=== PATIENT | male | born 1965 | race African-American/Black ===

== ENCOUNTER → 2024-08-10 09:01 | Outpatient (BNVA) | payer OTHER, SELFPAY | PROVIDERS: Visit Provider Physician Assistant | DX: S61.012A Laceration without foreign body of left thumb without damage to nail, initial encounter (principal); W26.9XXA Contact with unspecified sharp object(s), initial encounter; Z23 Encounter for immunization | CPT/HCPCS: 99204 ==

== ENCOUNTER → 2024-08-13 11:07 | Outpatient (BNVA) | payer OTHER, SELFPAY | PROVIDERS: Visit Provider Internal Medicine | DX: S61.012D Laceration without foreign body of left thumb without damage to nail, subsequent encounter (principal); W26.9XXD Contact with unspecified sharp object(s), subsequent encounter | CPT/HCPCS: 99213 ==

== ENCOUNTER → 2024-11-08 10:50 | Outpatient (BNVA) | payer OTHER, SELFPAY | PROVIDERS: Visit Provider Physician Assistant | DX: S39.012A Strain of muscle, fascia and tendon of lower back, initial encounter (principal); X50.1XXA Overexertion from prolonged static or awkward postures, initial encounter | CPT/HCPCS: 99203 ==

== ENCOUNTER 2025-06-11 15:38 | Outpatient (AMB) | payer OTHER, SELFPAY ==
--- NOTE | 2025-06-11 15:57 | AM.OFFWIN_ITS ---
Intake Vital Signs 06/11/25 16:00 Height 5 ft 6 in Weight 300 lb BMI 48.4 BP 126/78 Blood Pressure Location Lt brachial Position Sitting Respiration 17 Pulse 67 Pulse Source Pulse Oximeter Temp 97.7 F Temp Source Oral Pulse Oximetry (%) 95 Oxygen Delivery Method Room Air Intake Visit Reasons: EP Back pain Intake Note: Pt is here today for a walk in visit. Pt c/o R lower back pain that goes down his leg for 3 days. Pt states that he has been shoveling. 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 - He reports the onset was after strenuo us physical labor, including shoveling ice and snow and carrying buckets. - He describes the pain as starting on t he right side, localized to the right flank and buttock, and radiating down the right leg. - He denies a prior history of sciatica. - He has not taken any medications like Advil or Motrin for the pain. Nor has he used ice. - He denies any loss of bladder or bowel control. Review of Systems Narrative Review of Systems - Genitourinary: Denies bladder incontinence. - Gastrointestinal: Denies bowel incontinence. - Musculoskeletal: Reports pain in the right low back, right flank, and right buttock. - Neurological: Reports pain radiating down the right leg. All systems reviewed and are unremarkable except as noted in HPI Physical Exam Exam Exam: Physical Exam General: cooperative, healthy appearing and comfortable, patient oriented x3 Head: Yes normal to inspection and Yes normocephalic General nose exam: Normal external nose present Face and sinus: Yes normal facial exam Effort & Inspection: normal respiratory effort and able to speak in complete sentences Back/spine: cervical, thoracic and lumbar spine normal to inspection cervical ROM normal, thoracic ROM normal, lumbar ROM normal no Cervical, thoracic or lumbar spine tenderness no TTP buttocks. Extremities: Straight leg raise test negative on right; Straight leg raise test negative on left; motor strength normal bilaterally, sensation intact bi laterally Neurological: normal gait Vital Signs: Last Vital Signs Temp 97.7 F 06/11/25 16:00 Pulse 67 06/11/25 16:00 Resp 17 06/11/25 16:00 BP 126/78 06/11/25 16:00 Pulse Ox 95 06/11/25 16:00 Oxygen Delivery Method Room Air 06/11/25 16:00 BMI result Body Mass Index 48.4 Assessment & Plan Assessment & Plan (1) Sciatica, right side: Code(s): M54.31 - Sciatica, right side Plan: Assessment and Plan Right-sided sciatica The patient presents with right-sided low back pain radiating down the leg, which started after recent strenuous physical activity. The pain originates in the right low back and buttock area. Although the straight leg raise test was negative, the clinical presentation is consistent with sciatica. A prescription for meloxicam was sent to the patient's pharmacy, [facility] on [facility], with instructions to take one tablet daily for 3-4 days and then as needed. Advised to use ice on the painful area and rest. Recommended performing sciatica stretches found on a reputable website like the [facility] once the pain improves. A work note will be provided to excuse the patient from work until Tuesday. Patient was instructed to go to the emergency department for any new loss of bladder or bowel control, as this could indicate significant nerve involvement. Advised to return for follow-up and consideration of steroids if symptoms do not improve. Follow up with PCP if no improvement in pain after treatment. Patient was informed and verbally consented to the use of an ambient scribe for clinic note documentation during this visit. Medications: New meloxicam 15 mg PO DAILY PRN 15 tabs 0RF pain, moderate Coding Level of Care Code New Pt Level 3 (99922) Diagnoses Sciatica, right side M54.31
[2025-06-11 16:00] VITALS: BP 126/78; PULSE 67; RESP 17; TEMP 36.5; O2SAT 95; BMI 48.4
== END 2025-06-11 16:15 | disposition home or self-care (01) ==
PROVIDERS: Visit Provider Physician Assistant
DX: M54.31 Sciatica, right side (principal)

== ENCOUNTER → 2025-06-11 15:38 | Outpatient (BNVA) | payer OTHER, SELFPAY | PROVIDERS: Visit Provider Physician Assistant | DX: M54.31 Sciatica, right side (principal) | CPT/HCPCS: 99202 ==